=== PATIENT | female | born 1935 | race Caucasian/White ===

== ENCOUNTER 2018-08-03 11:39 | Inpatient (IN) | payer MEDICARE, OTHER ==
[~2018-08-03] VITALS: Ht 167.6 cm; Wt 62.7 kg
--- OUTSIDE RECORDS SUMMARY | ~2018-08-03 | XMS | Clinical Summary ---
Demographics + + + | Address | [address] | | | [place] [address] | + + + | Preferred Language | Unknown | + + + | Marital Status | | + + + | Quaker Affiliation | Unknown | + + + | Race | Unknown | + + + | Ethnic Group | Unknown | + + + Author + + + | Author | [facility] | + + + | Organization | [facility] | + + + | Address | Unknown | + + + | Phone | Unavailable | + + + Support + + + + + | Name | Relationship | Address | Phone | + + + + + | Tiffani Youngblood | ECON | [address] | | | | | [place] | | | | | [phone] | | + + + + + Care Team Providers + +------+ + | Care Clinical Immunologist Name | Role | Phone | + +------+ + | Asa Pedroza MD | PP | | + +------+ + Allergies + + + + + + | Active Allergy | Reactions | Severity | Noted | Comments | | | | | Date | | + + + + + + | Iodinated Diagnostic | Rash | Medium | 04/04/20 | Did well with | | Agents | | | 14 | cardiac cath | + + + + + + Current Medications + + +--------+---------+------+------+-------+ | Prescription | Sig. | Disp. | Refills | Star | End | Statu | | | | | | t | Date | s | | | | | | Date | | | + + +--------+---------+------+------+-------+ | ondansetron | Take 4 mg by mouth 3 | | | | | Activ | | (ZOFRAN) 4 MG tablet | (three) times daily | | | | | e | | | as needed. | | | | | | + + +--------+---------+------+------+-------+ | losartan (COZAAR) | Take 100 mg by mouth | | | | | Activ | | 100 MG tablet | daily. | | | | | e | + + +--------+---------+------+------+-------+ | ferrous gluconate | Take 1 tablet by | 30 | 6 | 11/2 | | Activ | | (FERGON) 324 MG | mouth daily with | tablet | | 1/20 | | e | | tablet | breakfast. | | | 14 | | | + + +--------+---------+------+------+-------+ | coenzyme Q10 400 | Take 400 mg by mouth | | | | | Activ | | MG capsule | 2 (two) times | | | | | e | | | daily. | | | | | | + + +--------+---------+------+------+-------+ | warfarin | Take 1 mg by mouth | | | | | Activ | | (COUMADIN) 1 MG | daily. Tues. & | | | | | e | | tablet | Thurs. 2mg., 1mg. | | | | | | | | Other days (reg by | | | | | | | | [facility] ) | | | | | | + + +--------+---------+------+------+-------+ | aspirin 81 MG EC | Take 162 mg by mouth | | | | | Activ | | tablet | daily with | | | | | e | | | breakfast. | | | | | | + + +--------+---------+------+------+-------+ | metoprolol | Take 50 mg by mouth | | | | | Activ | | (LOPRESSOR) 50 MG | 2 (two) times daily. | | | | | e | | tablet | | | | | | | + + +--------+---------+------+------+-------+ | nitrofurantoin | Take 100 mg by mouth | | | | | Activ | | (MACRODANTIN) 100 MG | nightly. | | | | | e | | capsule | | | | | | | + + +--------+---------+------+------+-------+ | cephALEXin | Take 500 mg by mouth | | | | | Activ | | (KEFLEX) 500 MG | 2 (two) times | | | | | e | | capsule | daily. Endocarditis | | | | | | | | prophylaxis, PRN | | | | | | + + +--------+---------+------+------+-------+ | pravastatin | Take 80 mg by mouth | | | | | Activ | | (PRAVACHOL) 80 MG | nightly. | | | | | e | | tablet | | | | | | | + + +--------+---------+------+------+-------+ | BIOTIN PO | Take by mouth. | | | | | Activ | | | | | | | | e | + + +--------+---------+------+------+-------+ Active Problems + + + | Problem | Noted Date | + + + | PAD (peripheral artery disease) | 12/27/2015 | + + + + + | Last Assessment & Plan: PAD/claudication. | + + + + + | Hypertension | 11/17/2015 | + + + + + | Last Assessment & Plan: Hypertension, controlled, continue | | current meds at current doses (losartan, metoprolol). 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 | | 80yo WF, known to have severe aortic stenosis, undergoing | | open heart surgery, AVR with single-vessel bypass surgery. She | | was seen after surgery, echocardiogram was performed which showed | | the valve to be stable ejection fraction normal, lost to | | follow-up. She states that she is only modestly active, | | housework, has problems with her feet. She denies any chest | | discomfort, shortness of breath, palpitations, or | | lightheadedness. She states that after her valve surgery she had | | some small mini strokes, but nothing serious, lately, no new | | visual disturbances, dysarthria, dysphasia, lateralizing signs or | | symptoms. An echocardiogram was performed, the aortic valve is | | stable, no significant gradient, no significant valvular | | insufficiency in the ejection fraction is well-preserved. Stress | | test was performed which showed poor functional capacity, | | however negative for ischemia, however only 50% of maximum heart | | rate was obtained. She states that she does have symptoms of | | cramping in the calves when she walks for any length of time. We | | offered an arterial ultrasound of extremities, at this point she | | is not sure she would like to proceed, but will consider it. | | Walking exercises encouraged. At our next visit, will discuss | | statin therapy.Hx CABG ([facility], [place]): 06/07/2010, CABG*1 ([facility] | | to LAD)/AVR (#21 SJM). Hx PCI/stent: noHx PAcemaker/ICD: noLast | | Cath, 05/25/2010([facility]): left main [place], 70-75% | | prox-LAD, 30% prox-LCx, 50% mid-RCA.Last Echo, 11/23/2015: AVR | | stable, peak/mean gradient 15/8mmHg, trace AI, trace MR, trace | | TR, mild concentric LVH LVEF >70%, est systolic PAP | | 26-31mmHg.Last Stress Test, 12/20/2015 ([facility]): 3:43min | | Rboert, ECG (-) for ischemia, but attained only 50% MPHR, no | | arrhythmias.ECG, 11/16/2015: NSR, 70bpm. | + + + + + | S/P AVR (aortic valve replacement) | 04/04/2014 | + + + + + | Last Assessment & Plan: Hx . AVR (#21 SJM), 06/07/2010. On | | warfarin. Endocarditis prophylaxis reenforced. Results of | | recent echocardiogram reviewed with patient.Last Echo, 11/23/2015: | | AVR stable, peak/mean gradient 15/8mmHg, trace AI, trace MR, | | trace TR, mild concentric LVH LVEF >70%, est systolic PAP | | 26-31mmHg. | + + + + + | GI bleeding | 04/04/2014 | + + + | Coumadin toxicity | 04/04/2014 | + + + | S/P CABG x 1 | 06/07/2010 | + + + + + | Overview: OLIVER > LAD | + + + + + | Hx of aortic valve replacement, mechanical | 06/07/2010 | + + + + + | Overview: #[address] [facility] | + + + +---+ | Coronary artery disease | | + +---+ + + | Overview: single vessel (LAD) | + + + +---+ | PVD (peripheral vascular disease) | | + +---+ | Stroke | | + +---+ + + | Overview: clinically has had several TIAs (expressive | | aphasia, lasting short times), 1 occasion with LLE weakness for 5 | | minutes | + + Family History + + +------+ + | Medical History | Relation | Name | Comments | + + +------+ + | Arrhythmia | Brother | | | + + +------+ + | Coronary art dis | Brother | | CABG | + + +------+ + | High cholesterol | Daughter | | | + + +------+ + | Hypertension | Daughter | | | + + +------+ + | Alcohol abuse | Father | | | + + +------+ + | Hypertension | Mother | | | + + +------+ + | Thyroid disease | Mother | | of "thyroid crisis" | + + +------+ + | High cholesterol | Son | | | + + +------+ + | Hypertension | Son | | | + + +------+ + | Prostate cancer | Son | | | + + +------+ + + +------+ + + | Relation | Name | Status | Comments | + +------+ + + | Brother | | | | | | | (Age | | | | | 74) | | + +------+ + + | Daughter | | Alive | | + +------+ + + | Father | | | passed in a fire | | | | (Age | | | | | 70) | | + +------+ + + | Mother | | | | | | | (Age | | | | | 64) | | + +------+ + + | Sister | | | "heart gave out" | | | | (Age | | | | | 72) | | + +------+ + + | Son | | Alive | | + +------+ + + Social History + +-------+ +--------+ + | Tobacco Use | Types | Packs/Day | Years | Date | | | | | Used | | + +-------+ +--------+ + | Former Smoker | | 0.4 | 3 | Quit: 05/19/1960 | + +-------+ +--------+ + + +---+---+---+ | Smokeless Tobacco: | | | | | Never Used | | | | + +---+---+---+ + + +---------+ + | Alcohol Use | Drinks/We | oz/Week | Comments | | | ek | | | + + +---------+ + | Yes | 1 | 0.6 | occasionally | | | Standard | | | | | drinks or | | | | | | | | | | equivalen | | | | | t | | | + + +---------+ + + + + | Sex Assigned at | Date Recorded | | | | + + + | Not on file | | + + + Last Filed Vital Signs + + + + | Vital Sign | Reading | Time Taken | + + + + | Blood Pressure | 150/78 | 11/11/2016 1:20 PM PDT | + + + + | Pulse | 75 | 11/11/2016 1:20 PM PDT | + + + + | Temperature | 36.7 C (98.1 F) | 04/08/2014 12:19 PM PST | + + + + | Respiratory Rate | 18 | 12/27/2015 9:41 AM PDT | + + + + | Oxygen Saturation | 95% | 11/11/2016 1:20 PM PDT | + + + + | Inhaled Oxygen | - | - | | Concentration | | | + + + + | Weight | 68 kg (150 lb) | 11/11/2016 1:20 PM PDT | + + + + | Height | 166.4 cm (5' 5.5") | 11/11/2016 1:20 PM PDT | + + + + | Body Mass Index | 24.58 | 11/11/2016 1:20 PM PDT | + + + + Plan of Treatment + + + + + | Health Maintenance | Due Date | Last Done | Comments | + + + + + | Vaccine: | | | | | Dtap/Tdap/Td (1 - | 7 | | | | Tdap) | | | | + + + + + | Vaccine: Zoster (1 | | | | | of 2) | 8 | | | + + + + + | DEXA SCAN SCREENING | | | | | | 3 | | | + + + + + | Vaccine: | | | | | Pneumococcal 65+ | 3 | | | | Low/Medium Risk (1 | | | | | of 2 - PCV13) | | | | + + + + + | Vaccine: Influenza | | | | | (#1) | 8 | | | + + + + + Results Not on filefrom Last 3 Months Insurance + +--------+ +------+-------+ + | Payer | Benefi | Subscriber | Type | Phone | Address | | | t Plan | ID | | | | | | / | | | | | | | Group | | | | | + +--------+ +------+-------+ + | MEDICARE | MEDICA | [id number] | | | [address] | | | RE | | | | [place] [address] | | | IP-OP | | | | | + +--------+ +------+-------+ + | COMMERCIAL OTHER | COMMER | [id number] | | | | | | CIAL | | | | | | | GENERI | | | | | | | C PLAN | | | | | + +--------+ +------+-------+ + + +--------+ +--------+ + + | Guarantor Name | Accoun | Relation to | Date | Phone | Billing Address | | | t Type | Patient | of | | | | | | | | | | + +--------+ +--------+ + + | NAYANA YOUNGBLOOD | Person | Self [birth year] Home: | [address] | | | [place] | | 1936 | [phone] | [place] | | | [place] | | | 5 | [phone] | + +--------+ +--------+ + +
--- OUTSIDE RECORDS SUMMARY | ~2018-08-03 | XMS | Clinical Summary ---
Demographics + + + | Address | [address] | | | [place] [address] | + + + | Preferred Language | Unknown | + + + | Marital Status | | + + + | Druze Affiliation | Unknown | + + + | Race | Unknown | + + + | Ethnic Group | Unknown | + + + Author + + + | Author | [facility] | + + + | Organization | [facility] | + + + | Address | Unknown | + + + | Phone | Unavailable | + + + Support + + + + + | Name | Relationship | Address | Phone | + + + + + | Tiffani Youngblood | ECON | [address] | | | | | [place] | | | | | [phone] | | + + + + + Care Team Providers + +------+ + | Care Special Events Coordinator Name | Role | Phone | + [...] artery disease involving coronary bypass graft of [place] | 04/04/2014 | | heart with angina [...] will discuss | | statin therapy.Hx CABG ([facility], [place]): 06/07/2010, CABG*1 ([facility] | | to LAD)/AVR (#21 SJM). Hx PCI/stent: noHx PAcemaker/ICD: noLast | | Cath, 05/25/2010([facility]): left main [place], 70-75% | | prox-LAD, 30% prox-LCx, 50% mid-RCA.Last Echo, 11/23/2015: AVR | | stable, peak/mean gradient 15/8mmHg, trace AI, trace MR, trace | | TR, mild concentric LVH LVEF >70%, est systolic PAP | | 26-31mmHg.Last Stress Test, 12/20/2015 ([facility]): 3:43min | | Robert, ECG (-) for ischemia, but attained only [...] + + | Overview: [address] [facility] | + + + +---+ | Coronary [...] +------+-------+ + | MEDICARE | MEDICA | [id number] | | | [address] | | | RE | | | | [place] [address] | | | IP-OP | | | | | + +--------+ +------+-------+ + | COMMERCIAL OTHER | COMMER | [id number] | | | | | | CIAL [...] | Self | [birth year] | Home: | [address] | | | [place] | | 1936 | [phone] | [place] | | | [place] | | | 7 | [phone] | + +--------+ +--------+ + +
--- OUTSIDE RECORDS SUMMARY | ~2018-08-03 | XMS | Clinical Summary ---
Demographics + + + | Address | [address] | | | [place] [address] | + + + | Home Phone | | + + + | Preferred Language | Unknown | + + + | Marital Status | | + + + | Druze Affiliation | Unknown | + + + | Race | Unknown | + + + | Ethnic Group | Unknown | + + + Author + + + | Author | [facility] | | | and [place] | + + + | Organization | [facility] | | | and [place] | + + + | Address | Unknown | + + + | Phone | Unavailable | + + + Support + + + + + | Name | Relationship | Address | Phone | + + + + + | Tiffani Gutierrez | ECON | [address] | Unavailable | | | | [place] | | | | | [phone] | | + + + + + Care Team Providers + +------+ + | Care Law Instructor Name | Role | Phone | + +------+ + PP | Unavailable | + +------+ + Allergies + + + +--------+ + | Active Allergy | Reactions | Severity | Noted | Comments | | | | | Date | | + + + +--------+ + | Iodine | | | | | + + + +--------+ + | Sulfa Antibiotics | | | | | + + + +--------+ + Current Medications + + +-------+---------+------+------+-------+ | Prescription | Sig. | Disp. | Refills | Star | End | Statu | | | | | | t | Date | s | | | | | | Date | | | + + +-------+---------+------+------+-------+ | cholecalciferol | Take 2,000 Units by | | | 01/17 | | Activ | | (VITAMIN D-3) 2000 | mouth Daily. | | | 09/05 | | e | | UNITS TABS | | | | 12 | | | + + +-------+---------+------+------+-------+ | losartan (COZAAR) | Take 100 mg by mouth | | | 091 | | Activ | | 100 MG tablet | Daily. | | | 420 | | e | | | | | | 12 | | | + + +-------+---------+------+------+-------+ | warfarin | Take 2 mg by mouth 6 | | | 01/17 | | Activ | | (COUMADIN) 2 mg | days a week and 1 | | | 09/05 | | e | | tablet | mg tablet 1 day a | | | 12 | | | | | week | | | | | | + + +-------+---------+------+------+-------+ | atorvaSTATin | Take 40 mg by mouth | | | 01/17 | | Activ | | (LIPITOR) 40 mg | Daily. | | | 09/05 | | e | | tablet | | | | 12 | | | + + +-------+---------+------+------+-------+ | aspirin 81 mg EC | Take 81 mg by mouth | | | 01/17 | | Activ | | tablet | Daily. | | | 20 | | e | | | | | | 12 | | | + + +-------+---------+------+------+-------+ | metoprolol | Take 1/2 tablet by | | | 01/17 | | Activ | | succinate (TOPROL | mouth 2 times daily | | | 09/05 | | e | | XL) 50 mg 24 hr | | | | 12 | | | | tablet | | | | | | | + + +-------+---------+------+------+-------+ | Omeprazole | TBEC; Take 1 tablet | | | 01/17 | | Activ | | Magnesium (PRILOSEC | by mouth once daily | | | 09/05 | | e | | OTC PO) | | | | 12 | | | + + +-------+---------+------+------+-------+ Active Problems + + + | Problem | Noted Date | + + + | HYPERLIPIDEMIA | | + + + | OTHER NONSPECIFIC ABNORMAL SERUM ENZYME LEVELS | | + + + + + | Overview: Problem list case management associate utility | + + + +---+ | HYPERTENSION | | + +---+ | GERD | | + +---+ | TRANSIENT ISCHEMIC ATTACKS, HX OF | | + +---+ + + | Overview: ICD-10 Record update | + + + +---+ | CAROTID ARTERY STENOSIS | | + +---+ Social History + +-------+ +--------+------+ | Tobacco Use | Types | Packs/Day | Years | Date | | | | | Used | | + +-------+ +--------+------+ | Never Assessed | | | | | + +-------+ +--------+------+ + + + | Sex Assigned at | Date Recorded | | | | + + + | Not on file | | + + + Last Filed Vital Signs + + + + | Vital Sign | Reading | Time Taken | + + + + | Blood Pressure | 142/78 | 10/03/2011 0000 PDT | + + + + | Pulse | - | - | + + + + | Temperature | - | - | + + + + | Respiratory Rate | - | - | + + + + | Oxygen Saturation | - | - | + + + + | Inhaled Oxygen | - | - | | Concentration | | | + + + + | Weight | 70.3 kg (155 lb) | 10/03/2011 0000 PDT | + + + + | Height | 165.1 cm (5' 5") | 08/16/2011 0000 PDT | + + + + | Body Mass Index | 25.79 | 10/03/2011 0000 PDT | + + + + Plan [...]
--- OUTSIDE RECORDS SUMMARY | ~2018-08-03 | XMS | Clinical Summary ---
Demographics + + + | Address | [address] | | | [place] [address] | + + + | Home Phone | | + + + | Preferred Language | Unknown | + + + | Marital Status | | + + + | Hinduism Affiliation | Unknown | + + + | Race | Unknown | + + + | Ethnic Group | Unknown | + + + Author + + + | Author | [facility] | | | and [place] | + + + | Organization | [facility] | | | and [place] | + + + | Address | Unknown | + + + | Phone | Unavailable | + + + Support + + + + + | Name | Relationship | Address | Phone | + + + + + | Tiffani Gutierrez | ECON | [address] | Unavailable | | | | [place] | | | | | [phone] | | + + + + + Care Team Providers + +------+ + | Care Ssds Mk 2 Advanced Operator Name | Role | Phone | + [...] + + + | Overview: Problem list bill of materials clerk utility | + + + +---+ | [...]
--- OUTSIDE RECORDS SUMMARY | ~2018-08-03 | XMS | Clinical Summary ---
Demographics + + + | Address | [address] | | | [place] [address] | + + + | Preferred Language | Unknown | + + + | Marital Status | | + + + | Nondenominational Affiliation | Unknown | + + + | Race | Unknown | + + + | Ethnic Group | Unknown | + + + Author + + + | Author | [facility] | + + + | Organization | [facility] | + + + | Address | Unknown | + + + | Phone | Unavailable | + + + Support + + + + + | Name | Relationship | Address | Phone | + + + + + | Tiffani Youngblood | ECON | [address] | | | | | [place] | | | | | [phone] | | + + + + + Care Team Providers + +------+ + | Care Railroad Car Letterer Name | Role | Phone | + [...] artery disease involving coronary bypass graft of [place] | 04/04/2014 | | heart with angina [...] will discuss | | statin therapy.Hx CABG ([facility] [place]): 06/07/2010, CABG*1 ([facility] | | to LAD)/AVR (#21 SJM). Hx PCI/stent: noHx PAcemaker/ICD: noLast | | Cath, 05/25/2010([facility]): left main [place], 70-75% | | prox-LAD, [...] +------+-------+ + | MEDICARE | MEDICA | [id number] | | | [address] | | | RE | | | | [place] [address] | | | IP-OP | | | | | + +--------+ +------+-------+ + | COMMERCIAL OTHER | COMMER | [id number] | | | | | | CIAL [...] | Self | [birth year] | Home: | [address] | | | [place] | | 1936 | [phone] | [place] | | | [place] | | | | [phone] | + +--------+ +--------+ + +
--- OUTSIDE RECORDS SUMMARY | ~2018-08-03 | XMS | Clinical Summary ---
Demographics + + + | Address | [address] | | | [place] [address] | + + + | Home Phone | | + + + | Preferred Language | Unknown | + + + | Marital Status | | + + + | Baptism Affiliation | Unknown | + + + | Race | Unknown | + + + | Ethnic Group | Unknown | + + + Author + + + | Author | [facility] | | | and [place] | + + + | Organization | [facility] | | | and [place] | + + + | Address | Unknown | + + + | Phone | Unavailable | + + + Support + + + + + | Name | Relationship | Address | Phone | + + + + + | Tiffani Gutierrez | ECON | [address] | Unavailable | | | | [place] | | | | | [phone] | | + + + + + Care Team Providers + +------+ + | Care Master Cook Name | Role | Phone | + [...] + + + | Overview: Problem list desktop architect utility | + + + +---+ | [...]
[~2018-08-03 11:39] MED LIST: BAYER CHEWABLE81 MG PO; CEPHALEXIN500 MG PO; CIPRODEX OTIC7.5 ML AS; CO Q-10100 MG PO; COUMADIN1 MG PO; COUMADIN4 MG PO; KEFLEX500 MG PO; LOSARTAN POTAS100 MG PO; METOPROLOL TART25 MG PO; METOPROLOL TART50 MG PO; NIACIN500 M1 PO; NITROFURANTOIN100 MG PO; NORCO 5-325 TA1 EACH PO; ONDANSETRON ODT4 MG SL; PRILOSEC OTC20 MG PO; PRILOSEC20 MG PO; VITAMIN D31000 UNIT PO; VITAMIN E400 UNI1 PO; WARFARIN SODIUM2 MG PO
--- NOTE | 2018-08-03 17:06 | EKG ---
[facility] [address] [place], [place] [address] Signed Normal sinus rhythm Normal ECG When compared with ECG of 24-OCT-2016 19:51, NM interval has decreased Confirmed by TOMEKA RUIZ DO ([id number]) on 08/03/2018 5:06:11 PM Electronically Signed By: TOMEKA RUIZ DO 08/03/18 1706 PATIENT NAME: YOUNGBLOODNAYANA Electrocardiogram DATE OF : 39 PHYSICIAN: TOMEKA RUIZ DO REPORT #: [id number] REPORT IS CONFIDENTIAL AND NOT TO BE RELEASED WITHOUT AUTHORIZATION
--- NOTE | 2018-08-03 19:00 | NUR ---
PATIENT ARRIVED TO THE UNIT FROM ED. ASSISTED IN TRANSFER FROM STRECHER TO BED. PATIENT HAS ABLE TO HELP SOME, DID NOT FOLLOW COMMANDS WELL. VS DONE. CHARGE IN ROOM TO ASSIST WITH ADDMISSION.
--- NOTE | 2018-08-03 19:30 | NUR ---
Medications reconciled with patient interview. Patient has not taking her warfarin today yet, pharmacy has dosed 3mg for tondayana
--- NOTE | 2018-08-03 20:30 | NUR ---
IV FLUIDS STARTED, IV ABX PER ORDER. SITE FLUSHED WELL. PATIENT APPEARS TO BE SLEEPING SOUNDLY. RR 20. ALLOWED REST AT THIS TIME. BED ALARM ON. CALL LIGHT IN HAND.
--- NOTE | 2018-08-03 21:50 | NUR ---
PATIENT SLEEPING SOUDNLY. WOKE EASILY TO VOICE AND TOUCH BUT WAS FALLING ASLEEP AGAIN QUICKLY. PATIENT REPLIES TO YES/NO QUESTIONS BUT IS UNABLE TO PROVIDE HER NAME. STATES SHE IS IN [place]. WHEN REORIENTED PATIENT STATES "OKAY" BUT IS UNABLE TO REPEAT INFORMATION. PATIENT APPEARS TO HAVE SOME DEGREE OF EXPRESSIVE APHASIA. PATIENT PASSED BEDSIDE SWALLOW EVAL WITHOUT CONCERN AND WAS ABLE TO SWALLOW MEDICATIONS. PATIENT DENIES NEED TO VOID AT THIS TIME. LUNGS ARE CLEAR. ABD IS SOFT. PATIENT UNABLE TO ANSWER WHEN SHE HAD HER LAST BM. CMS APPEARS TO BE INTACT, THOUGH PATIENT DOES NOT ANSWER SENSATION QUESTIONS. VS DONE, PATIENT HAS ELEVATED BP. WILL CONTINUE TO MONITOR. TELE IN PLACE, SINUS RHYTHM. HR 77. BED ALARM ON. CALL LIGHT IN PATIENT'S HAND.
--- NOTE | 2018-08-03 22:30 | NUR ---
BED ALARM ALERTED STAFF TO PATIENT EXITING BED. PATIENT UP TO BSC, 2PA. PATIENT REQUIRES FREQUENT DIRECTIONS BUT APPEARS STEADY ON HER FEET. PATIENT UNABLE TO PROVIDED HER NAME OR ANY ORIENTATION QUESTIONS. CMS APPEARS INTACT. PUPILS EQUAL AND REACTIVE TO LIGHT. COGNOS CONSULTANT STRENGTH EQUAL. NO PHYSICAL DEFICITS NOTED. PATIENT RETURNED TO BED AND QUICKLY APPEARED ASLEEP. BED ALARM ON. CALL LIGHT IN REACH.
--- NOTE | 2018-08-04 06:46 | NUR ---
PATIENT UP TO VOID WITH SLD INCLUSION TEACHER, UNABLE TO VOID. BLADDER SCAN FOR 120. MD AWARE. NO NEW ORDERS.
--- NOTE | 2018-08-04 06:47 | NUR ---
PATIENT HAS SLEPT MOST OF THE SHIFT. NEURO CHECK UNACHANGED. PATIENT HAS NO PHYSICAL DEFICITS, BUT IS CONFUSED AND UNABLE TO RESPOND APPROPRIATELY TO ANY QUESTIONS. PATIENT FOLLOWS SOME COMMANDS. DOES NOT USE CALL LIGHT APPROPRIATELY. BED ALARM IN USE. IV FLUIDS PER ORDER. PASSED BEDSIDE SWALLOW EVAL. 1PA UP TO BSC. NEURO CHECKS.
--- NOTE | 2018-08-04 07:50 | NUR ---
RPEORT RECIEVED FROM PREMISES TECHNICIAN RN. PT SITTING UP IN BED. ABLA TO ANSWER YES/NO QUESTIONS. 2PA TO CAHIR FOR BREAKFAST, PT UNSTEADY ON FEET WITH POOR BALANCE. SHUFFLE WALK TO CHAIR. CHAIR ALARM IN PLACE. CALL LIGHT IN REACH. VISIBLE FROM NURSING STASTION. LR AT 75ML/HR.
--- NOTE | 2018-08-04 10:46 | NUR ---
FAMILY AT BEDSIDE.
--- NOTE | 2018-08-04 11:10 | NUR ---
PT OUT AMBULATING IN HALLS WITH PHYSICAL THERAPY. TOLERATING WELL USING FWW.
--- NOTE | 2018-08-04 19:49 | NUR ---
RECEIVED REPORT FROM DAY SHIFT RN. PATIENT REPOSITIONED IN BED. BED ALARM ON FOR SAFETY. CALL LIGHT IN REACH.
--- NOTE | 2018-08-04 22:01 | NUR ---
PATIENT ASSESMENT COMPLETED. PATIENTS VITALS TAKEN AND RECORDED. PATIENT DENIES ANY PAIN. RIGHT SIDE WEAKNESS NOTED. PATIENT CONTINUES TO HAVE EX APHASIA. PATIENT ASSISTED TO THE RESTROOM A 1PA W/FWW. PATIENT IS UNSTEADY ON HER FEET AND STRUGGLES WITH BALANCE. PATIENT WAS ABLE TO VOID. PATIENT IS NOW BACK IN BED RESTING. PATIENT DENIES ANY FURTHER NEEDS. BED ALARM ON FOR SAFETY. IV INFUSING PER ORDER.
--- NOTE | 2018-08-04 23:04 | NUR ---
PATIENT IS RESTING IN BED WITH EYES CLOSED, RR 17. TELE #9, HR 59. BED ALARM ON FOR SAFETY. CALL LIGHT IN REACH.
--- NOTE | 2018-08-05 01:54 | NUR ---
PATIENT ASSISTED TO THE RESTROOM A 1PA W/FWW. PATIENT TOLERATED ACTIVITY WELL. PATIENT DOES STRUGGLE WITH BALANCE. PATIENT WAS ABLE TO VOID. PATIENT IS NOW BACK IN BED RESTING. NEW IV STARTED. IV INFUSING PER ORDER. NO NEEDS NOTED. CALL LIGHT IN REACH. BED ALARM ON FOR SAFETY.
--- NOTE | 2018-08-05 02:37 | NUR ---
HELPED PATIENT TO THE BATHROOM AND BACK TO BED USING WALKER. BED ALARM ON.
--- NOTE | 2018-08-05 03:24 | NUR ---
PATIENT IS RESTING IN BED WITH EES CLOSED, RR 17. BED ALARM ON FOR SAFETY. CALL LIGHT IN REACH.
--- NOTE | 2018-08-05 05:03 | NUR ---
PATIENT RESTED WELL THROUGHOUT THE SHIFT. PATIENT IS ON A REGULAR DIET, TOLERATING WELL, W/NO COMPLAINTS OF NAUSEA. PATIENT HAS ORDER FOR ST/OT/PT. PATIENT IS A 1-2 PA W/FWW. PATIENT HAS RIGHT SIDED WEAKNESS, RIGHT SLIGHT FACIAL DROOP NOTED. PATIENT HAS NEURO CHECKS. PATIENT IS ON TELE #9, HR IN THE 60-70. PATIENT HAS IV INFUSING PER ORDER. PATIENT HAS EXPRESSIVE APHASIA. PATIENT APPEARS TO HAVE RIGHT VISUAL DEFICIT. PATIENT IS IMPULSIVE. BED ALARM ON FOR SAFETY.
--- NOTE | 2018-08-05 05:08 | NUR ---
PATIENT UP TO THE RESTROOM A 1PA W/FWW. BRIM POUNCER MACHINE OPERATOR IN THE ROOM. PATIENTS DW TAKEN AND RECORDED. PATIENT IS NOW BACK IN BED RESTING. PATIENTS VITALS TAKEN AND RECORDED. PATIENTS INTAKE AND OUPUT RECORDED. PATIENT DENIES ANY NEEDS. CALL LIGHT IN REACH. BED ALARM ON FOR SAFETY.
--- NOTE | 2018-08-05 07:38 | NUR ---
PT. WALKED TO THE BATHROOM AND VOIDED AND HAD A SMALL BM. WALKED TO THE CHAIR AND SHE WAS UNSTEADY BEFORE SHE SET DOWN,HAD TO GRAB HER SO SHE WOULDNT FALL. SHE IS SITTING UP WAITING FOR BREAKFAST. CALL LIGHT IN REACH.
--- NOTE | 2018-08-05 07:45 | NUR ---
PATIENT UP TO BATHROOM TO VOID WITH STANDBY ASSIST, UP TO CHAIR FOR BREAKFAST. NEURO CHECK: RIGHT ARM DRIFT, RIGHT FACIAL DROOP NOTED, EXPRESSIVE APHASIA WITH UNKNOWN BASELINE. PATIENT IS ABLE TO USE RIGHT HAND TO EAT BREAKFAST, NO SWALLOWING DIFFICULTY NOTED. PATIENT DENIES PAIN.
--- NOTE | 2018-08-05 10:51 | NUR ---
PATIENT UP TO BATHROOM, VERY UNSTEADY ON FEET. BACK IN BED, BED ALARM IS ON.
--- NOTE | 2018-08-05 12:39 | NUR ---
PATIENT BLOOD PRESSURE IS 195/[address] RUIZ KNOW. PATIENT GIVEN PRN LABETALOL.
--- NOTE | 2018-08-05 12:57 | NUR ---
PATIENT RESTING IN BED, CALL LIGHT IN REACH. NO OTHER NEEDS AT THIS TIME.
--- NOTE | 2018-08-05 13:01 | NUR ---
PATIENT AGITATED, TRYING TO UNTAPE IV. IV SITE WRAPPED WITH COBAN.
--- NOTE | 2018-08-05 13:25 | NUR ---
PATIENT GIVEN 2MG OF IV HALDOL FOR AGITATION, TRYING TO PULL IV OUT. TROY VINCENT IN WITH PATIENT 1:1 FOR NOW. PATIENT TOLD PRIMARY NURSE, "I WANT YOU TO LEAVE."
--- NOTE | 2018-08-05 14:16 | NUR ---
IN ROOM, ASKING THAT IV BE UNWRAPPED. NURSE EXPLAINED THAT THE IV WAS NEEDED FOR TREATMENT NOW, SAFTEY REASONS, AND IN THE EVENT OF A CODE. APOLOGIZED THAT I WAS UNABLE TO REMOVE IV OR REASSIGN TO A DIFFERENT NURSE, BUT THAT I WOULD NOT COME IN ROOM UNLESS NECESSARY.
--- NOTE | 2018-08-05 16:05 | NUR ---
PATIENT UP TO BATHROOM WITH FLOAT NURSE TO VOID AND BACK TO BED. BED ALARM IS ON.
--- NOTE | 2018-08-05 17:29 | NUR ---
PATIENT RESTING IN BED, FAMILY IN ROOM. PATIENT IS RESPONSIVE TO VOICE AND COOPERATIVE. RN IN ROOM AT THIS TIME. NO OTHER NEEDS.
--- NOTE | 2018-08-05 17:32 | NUR ---
PATIENT UP TO COMMODE TO VOID IN BATHROOM WITH 2 ASSIST. PATIENT IS NOT STEADY ON HER FEET, DOES NOT FOLLOW DIRECTIONS WELL. IV HAS BEEN LEFT SALINE LOCKED DUE TO PATIENT AGITATION, TELEMETRY IS ON. BLOOD PRESSURE HAS REMAINED HIGH ALL DAY, DESPITE MULTIPLE MEDICATIONS. SON IS CURRENTLY IN ROOM WITH PATIENT.
--- NOTE | 2018-08-05 20:25 | NUR ---
VERBAL APHASIA PRESENT. OPENS EYES WITH SOUND, FOLLOWING INSTRUCTIONS. COOP WITH VITALS, AND ASSESSMENT. TELE#( IN PLACE. BED ALARM ON, IV SITE LFA INTACT, PATENT, IVF INFUSING
--- NOTE | 2018-08-05 20:50 | NUR ---
I HEARD BRANDON, THE TELEVISION RECEIVER ANALYZER CALL FOR HELP IN ROOM 120. WHEN I ENTERED THE ROOM THE PATIENT WAS SITTING ON THE RIGHT HAND SIDE OF THE BED ALMOST CROSS LEGGED ON THE FLOOR. I ASKED THE PATIENT IF SHE FELL DOWN OR JUST SAT DOWN. SHE SAID,"WELL I JUST KIND OF SAT DOWN." I ASK IF SHE WAS HURT AND SHE SAID,"NO." THEN SHE GRABBED THE BED RAIL ON THE BED STOOD UP AND SAT BACK ON THE BED AND THEN LAID DOWN. THIS IS WHAT I REPORTED TO THE CHARGE NURSE.
--- NOTE | 2018-08-05 20:56 | NUR ---
BED ALARM GOING OFF, PT FOUND SITTING ON FLOOR BY BED. RAILS UPX3, BED ALARM ON. IVSITE PATENT. PT STOOD OFF FLOOR BY SELF AND GOT BACK TO BED BY SELF. PT TOLD MALE RN WHO WENT INTO ROOM THAT SHE HAD GOT OUT OF BED AND SAT ON THE FLOOR. CURRENTLY AWAKE, ANSERS YES TO ALL QUESTIONS ASKED. PT HAS EXPRESSIVE APHASIA. NO BRUISING NOTED ON FOREHEAD, FACE, ELBOWS OR KNEES. DR GAMBOA NOTIFIED OF PTS UNWITNESSED GETTING OUT OF BED. BED ALRM WAS ON ON HIGH SENSITIVE. RAILS UPX3. NEW ORDERS TO PLACE PADS AROUND BED. HIGH FALL RISK PROTOCOL IN PLACE. PT ACROSS FROM [facility] [place] [facility].
--- NOTE | 2018-08-05 21:13 | NUR ---
FLOOR MAT AND PADS AROUND RAILS PPLIED. BED ALARM ON ON HIGHEST SENSITIVE LEVEL. UNABLE TO ASSESS PTS DEGREE OF TEACHING UNDERSTANDING DUE TO EXPRESSIVE APHASIA. PT ACRSOSS FROM [facility], ROOM DOOR OPEN . PT CALM, EYES CLOSED.
--- NOTE | 2018-08-05 23:50 | NUR ---
BED ALARM GOING OFF, PT TRYOING TO CRAWL OUT. SAT EDGE OF BED FOR SEVERAL MINUTES, AND AFTER MANY CUES, GOT BACK TO BED. HIGH FALL PRECAUTIONS IN PLACE. FLOOR MAT IN PLACE. BED ALARM BACK ON ON HIGHEST SETTING. CONTINUES TO HAVE EXPRESSIVE APHASIA,
--- NOTE | 2018-08-06 01:05 | NUR ---
MESSAGE LEFT IN PHONE FOR DR GAMBOA R/T PT INCREASED AGITATION AND PULLING AT IV AND GETTING OPUT OF BED, PT CALMER AT THIS TIME, UNABLE TO FOLLOW INSTRUCTIONS, VERBAL APHASIA STILL PRESENT, IMPROVED R SIDED DEFICIT.
--- NOTE | 2018-08-06 01:09 | NUR ---
DR GAMBOA CALLED BACK. DR INFORMED OF PT INCREASED RESTLESSNESS, PULLING AT IV AND TAKING TELE OFF, AND GETTING OUT OF BED. NEW ORDERS OBTAINED OK TO SL PT, DC TELE, GIVE TRAZADONE 25MG PO, IF ABOVE NOT EFFECTIVE, KEEP PT ON A 1:1 FOR SAFETY REASONG
--- NOTE | 2018-08-06 01:22 | NUR ---
pt declining to take trazadone, sitting on edge of bed, declines to get back to bed, bed alrm was going off as she tries to get out of bed. Energy Consultant notified of pts 1:1 for safety. Pt not following instructions, unable to process safvety information being given to hger
--- NOTE | 2018-08-06 01:31 | NUR ---
continues to decline to take trazadone, meds were crushed and given on puding, spitted out. pt back to bed. bed alarm on highest setting. pt on 1:1 fall safety
--- NOTE | 2018-08-06 02:23 | NUR ---
pt trying to get out of bed, semi receptive to cues. Bed alarm on on highest setting. Continues on 1:1, Declined to have this RN do a second assessment. Calmer at this time
--- NOTE | 2018-08-06 02:42 | NUR ---
PATIENT IS RESTING, EYES CLOSED AND SNORING. BED ALARM ON.
--- NOTE | 2018-08-06 02:53 | NUR ---
BED ALARM WENT OFF. TOOK PATIENT TO THE BATHROOM. PATIENT IS BACK IN BED. BED ALARM ON.
--- NOTE | 2018-08-06 04:45 | NUR ---
PT CURRENTLY AWAKE, CALM, RAILS UPX3, BED ALARM ON HIGHEST LEVEL. HIGH FALL PROCAUTIONS IN PLACE. PT CONTINUES TO BE IMPULSIVE AND TRYING TO GET OUT OF BED. ON 1:1 WHEN AWAKE DUE TO IMPULSIVITY AND FOR FALL PRECAUTION. PT GOT SELF OUT OF BED AND SAT ON FLOOR X1, NO INJURIES NOTED. CONTINUES TO HAVE EXPRESSIVE/VERBAL APHASIA. R SIDED WEAKNESS, HAS GOT UP WITH 1PA AND FWW TO BR, VOIDED, BACK TO BED AFTER SEVERAL CUES. CALL LIGHT AT HANDS REACH, BED ALARM ON
--- NOTE | 2018-08-06 06:39 | NUR ---
PT UP TO BR, VOIDED QS, YELLOW URINE AND HAD SMEAR OF SOFT BM. BACKA TO BED USING 1PA AND FWW, R SIDED DEFICIT AND EXPRESSIVE APHASIA STILL PRESENT. DECLINED TO HAVE BP RETAKEN, DECLINED SIPS OF WATER AT THIS TIME. MOUTH CARE DONE. PT BACK TO BED, HIGH FALL PRECAUTIONS IN PLACE. BED ALARM ON AT HIGHEST SETTING PT IS VERY IMPULSIVE AND IS UNABLE TO COMPREHEND SAFETY/FALL PRECAUTIONS. NURSE IN ROOM
--- NOTE | 2018-08-06 07:00 | NUR ---
REPORT RECEIVED FROM TROY ORTIZ. PT RESTING IN BED WITH EYES CLOSED, RR = 20 BPM. BED RAILS UP, PADS IN PLACE, BED ALARM ON. PIV SALINE LOCKED.
--- NOTE | 2018-08-06 08:09 | NUR ---
MORNING ASSESSMENT AND MEDICATION DUE. PT AWAKE AND VISITING WITH SON. OCCATIONAL WORD SALAD HEARD, EXPRESSIVE EPHASIA NOTED. NIH STROKE SCALE ASSESSEMENT DONE - PT SCORES 8. VITALS TAKEN. PT COMPLIANT WITH CARES THIS MORNING AND TAKES MEDICATION WITHOUT AGITATION. PT EATS SOLID FOOD BREAKFAST WITH ASSISTANCE FROM SON BREONNA THIS RN, NO SWALLOWING DIFFICULTIES NOTED. PIV ASSESSED, WNL AT THIS TIME. RECOVERED WITH SOFT GAUZE AND SLIEVE. PT REFUSES TO GET UP TO CHAIR AT THIS TIME, RESTING IN BED WITH SON AT BEDSIDE. NO ADDITIONAL REQUESTS OR COMPLAINTS AT THIS TIME. BED ALARM ON. PADS IN PLACE.
--- NOTE | 2018-08-06 09:05 | NUR ---
TALKED WITH PT AND HER ABOUT THE NEED TO GO TO REHAB-WHERE SHE WILL GET THE BEST OF RECOVERY RATHER THAN JUST RETURNING HOME. MR FORD STATES THAT HE WILL GO DOWN AND CHECK OUT [facility] AND HE WILL THEN LET ME KNOW.
--- NOTE | 2018-08-06 09:37 | NUR ---
THIS RN TO ROOM TO CHECK ON PT. VITALS TAKEN. FAMILY AT BEDSIDE. PT DENIES PAIN AND NAUSEA. PT REQUESTS "i WOULD LIKE TO TAKE A BATH." MATTRESS FILLING MACHINE TENDER INFOMRED AND PREPARATIONS MADE. FAMILY REQUESTS SHOWER HAPPEN AFTER PT RESTS "A LITTLE MORE." BED RAILS UP. CALL LIGHT WITHIN REACH. BED ALAMR ON.
--- NOTE | 2018-08-06 10:20 | NUR ---
TALKED WITH THE PT DAUGHTER ELIO DEALER #[phone] ABOUT HER MOTHER AND WHAT THE PLANS WERE FOR HER RECOVERY PERIOD AND HER PROGNOSIS. I TOLD HER THAT WE WERE WORKING ON PLACEMENT INTO A FACILITY AND THAT MURRAY WOULD LIKE HER TO GO TO [facility] AFTER HE CHECKS IT OUT, HE STATES THAT WAY WE CAN VISIT HER FREQUENTLY. I ALSO TOLD HER FAR HER PROGNOSIS GOES THAT WE HAVE NO IDEA HOW MUCH SHE WILL RECOVER BUT THAT REHAB WOULD BE THE BEST FOR HER. SHE ASKED ABOUT A SPECIFIC FACILTIY FOR STROKE REHAB AND I STATED THAT HER MOTHER AT THIS TIME DOES NOT QUALIFY FOR THE STROKE REHAB SHE IS SOMETIMES 1:1 CARE AND WITH HER CONFUSION AT THIS POINT. I SAID THAT IS NOT TO SAY SHE COULD NEVER GO TO STROKE REHAB, BUT AT THIS POINT SHE IS NOT A CANDIDATE FOR STROKE REHAB. SHE STATED UNDERSTANDING AND THAT SHE DOES NOT HAVE ANY QUESTIONS AT THIS TIME. MY OFFICE PHONE NUMBER WAS GIVEN TO HER SO THAT IF SHE HAS QUESTIONS SHE CAN CALL AND IF I AM NOT IN THE OFFICE I CAN GET BACK TO HER.
--- NOTE | 2018-08-06 11:00 | NUR ---
WHEN I CAME IN TO CHECK ON PATIENT. THE NURSE WAS GIVING HER A SHOWER. ONE OF THE OTHER NURSES WAS CHANGING THE SHEETS ON HER BED. SO AFTER SHE WAS DONE WITH HER SHOWER THE NURSE NEEDED HELP TO TRANSFER FROM THE SHOWER CHAIR TO HER CHAIR. DOCTOR CAME IN AND I CLEANED THE BATHROOM.
--- NOTE | 2018-08-06 11:29 | NUR ---
PT ATTEMPTING TO CLIMB OUT OF BED. THIS RN TO BEDSIDE. PT STATES SHE WANTS "A BATH." PIV COVERED. PIVOT TRANSFER TO SHOWER CHAIR. PT SHOWS INCREASED STRENGTH. PT SHOWERED BY THIS RN. LINENS CHANGED. PT HAS SMALL SOFT BM WHILE IN SHOWER. PT PARTICIPATES IN CARES, ABLE TO WASH SOME AREAS OF BODY, FOLLOWS MOST DIRECTIONS, AND TRIES TO COMB HAIR. MORE SUCCESSFUL WITH LEFT SIDE. PT ATTEMPTS TO STAND ON HER OWN DURING SHOWER MULTIPLE TIMES. PT COXED BACK TO CHAIR, RIGHT SIDED WEAKNESS EVIDENT. PT LISTS TO RIGHT SIDE AT TIMES. NEW GOWN AND DEPENDS IN PLACE, DANITZA CARE AND SHAMPOO DONE. PIVOT TRANSFER TO CHAIR. MD TO BEDSIDE FOR ASSESSMENT. NIH SCALE NOW BACK TO 10, EXPRESSIVE EPHASIA NOTED, WORD SALAD EVEDIENT AT TIMES. PT UNABLE TO IDENTIFY PICTURES AND IS NO LONGER MAKING SENTENCES. SENSORY PERCEPTION DIFFICULT TO ASSESS PT ANSWERS "YES" TO EVERY TOUCH BUT IS NOT ABLE TO IDENTIFY THE SIDE OF BODY TOUCHED. AT BEDSIDE. PT DENIES PAIN AND NAUSEA. PHYSICAL THERAPY DELAYED UNTIL THIS AFTERNOON RELATED TO PTS NEED TO REST. CALL LIGTH WITHIN REACH. AT BEDSIDE. CHAIR ALARM ON.
--- NOTE | 2018-08-06 12:54 | NUR ---
MEDICATIONS DUE, THIS RN TO ROOM. VITALS TAKEN, MEDICATIONS GIVEN. PHYSICAL THERAPY ARRIVED TO WORK WITH PT. PT WORKING WITH PHYSICAL THERAPY. NO ADDITIONAL REQUESTS OR COMPLAINTS AT THIS TIME.
--- NOTE | 2018-08-06 15:05 | NUR ---
THIS RN TO ROOM TO CHECK ON PT. BURLAP WORKER UNABLE TO OBTAIN VITALS, VITALS TAKEN BY THIS RN. PT RESTING WITH EYES CLOSED, RR = 22. PT FAMILY AT BEDSIDE. FAMILY UPDATED ON PLAN OF CARE. FAMILY STATES THE QUESTIONS HAVE BEEN ANSWERED. PT CONTINUES RESTING, BED RAILS UP. BED ALARM ON. DINNER AND BREAKFAST ORDER PLACED.
--- NOTE | 2018-08-06 17:10 | NUR ---
AFTERNOON ASSESSMENT AND MEDICATIONS DUE. THIS RN TO BEDSIDE. PT FINISHED WORKING WITH OCCUPATIONAL THERAPY. OCCUPATIONAL THERPIST STATES PT WAS ABLE TO FOLLOW DIRECTIONS BUT "TIRES EASILY." PT BACK TO BED TO REST. ASSESSMENT DONE. NIH STROKE SCALE REMAINS AT 10 BUT SPEACH, STRENGTH, SENSATION AND FOLLOWING DIRECTIONS NOTABLY IMPROVED. PT ABLE TO READ ALL SENTENCES EXPEPT THE LAST ONE. UNABLE TO IDENTIFY PICTURE OBJECTS, ABLE TO USE SOME WORDS TO DESCRIBE PICTURE. PT USING FULL SENTENCES TO COMMUNICATE WITH FAMILY AND THIS RN. PT STATES "I WANT HIM (POINTING TO ) TO EAT." PT ABLE TO SWALLOW PILLS WHOLE WITHOUT ANY AGITATION OR SWALLOWING DIFFICULTIES. PT ALSO ABLE TO POINT TO SIDE THAT IS TOUCHED. DEPENDS DRY AT THIS TIME. BED RAILS UP. OUTCOME ANALYST TRY ORDERED FOR . PT REQUESTS A MILKSHAKE, ENSURE MILKSHAKE PROVIDED. BED RAILS UP. BED ALARM ON. CALL LIGHT WITHIN REACH. AT BEDSIDE.
--- NOTE | 2018-08-06 18:10 | NUR ---
PT HERE FOR CVA. EXPRESSIVE APHASIA AND RIGHT SIDED WEAKNESS IMPROVING THIS SHIFT. PT TOLERATING REGULAR DIET AND FEEDING SELF THIS SHIFT. 1-2 PA, FWW. PT UP WITH PHYSICAL THERAPY X1 THIS SHIFT. SHOWER TODAY. NIH STROKE SCALE ASSESSEMENTS Q4, 8-10 ON SCORE THIS SHIFT. FALL PRECAUTION PADS IN PLACE. OCCUPATIONAL THERAPY THIS SHIFT. FAMILY AT BEDSIDE. PT FOLLOWS SIMPLE, 1 STEP COMANDS. PT DOES NOT USE CALL LIGHT.
--- NOTE | 2018-08-06 18:46 | NUR ---
PT REPORTING PAIN AT IV SITE. UNABLE TO FLUSH PIV. BANDAGE REMOVED. PIV CATHETER NOTED TO BE BENT. ATTPENTED TO STRAIGHTEN CATHETER, STILL UNABLE TO FLUSH. PIV DC'D PER PROTOCOL. GAUZE AND COBAN APPLIED. NEW PIV STARTED PER PROTOCOL IN RIGHT FOR ARM. BRISK BLOOD RETURN NOTED. PIV SALINE LOCKED, GAUZE AND SLEEVE OVER IV SITE. PT TALKING WITH SON, OCCATIONAL FULL SENTENCES. BED RAILS UP. BED ALARM ON. CALL LIGHT WITHIN REACH. SON AT BEDSIDE.
--- NOTE | 2018-08-06 19:20 | NUR ---
SHIFT REPORT RECEIVED FROM [facility] TROY CASTRO. PT AWAKE RESTING IN BED, SON IN ROOM. PT UP 2PA TO VOID WITH GAITBELT AND FWW. PT TOLERATED AMBULATION WELL WITH USE OF SHORT DIRECTIONAL CUES. PT RESTING BACK IN BED, BED ALARM ON FOR SAFETY. CALL LIGHT IN REACH.
--- NOTE | 2018-08-06 21:14 | NUR ---
ASSESSMENT COMPLETE. SCHEDULED MEDS GIVEN (SEE EMAR). PT'S 2100 SCHEDULED LOVENOX RETIMED PER SUGGESTION OF TELEPHARMACY PT'S LAST DOSE WAS NEAR 1300. MED WAS RETIMED FOR 0100 AND 1300. CHICLE GRINDER FEEDER ROXANN AWARE OF CONVERSATION WITH TELEPHARMACY. NIH STROKE SCALE COMPLETE, SEE INTERVENTION DOCUMENTATION. PT DROWSY, MILDY IRRITATED WITH ASSESSMENT BUT COMPLIANT. PT UNABLE TO STATE NAME OR . IV SITE FLUSHED, SITE WNL. CALL LIGHT IN REACH. BED ALARM, SIDE RAILS, AND RAILING PADDING IN PLACE FOR SAFETY.
--- NOTE | 2018-08-06 22:00 | NUR ---
PT RESTING IN BED, RR WNL. PT APPEARS COMFORTABLE. NO DISTRESS NOTED. RAILS UP WITH PADDING, FALL MATS IN PLACE. PT SALINE LOCKED. CALL LIGHT IN KRYSTINA, BED ALARM ON FOR SAFETY.
--- NOTE | 2018-08-07 04:30 | NUR ---
BED ALARM GOING OFF, THIS RN IN ROOM. PT VERBALIZING NEED TO VOID. PT 2PA WITH FWW AND GAIT BELT. 250 MLS YELLOW OUPUT. PT BACK IN BED, ASSESSMENT COMPLETE. NIH STROKE SCALE COMPLETE, SEE SCORE UNDER INTERVENTION. PT DENIES PAIN, A/O TO FIRST NAME AND LOCATION. DENIES FURTHER NEEDS, CALL LIGHT IN REACH. BED ALARM ON FOR SAFETY WITH SIDE RAILS UP W/ PADDING.
--- NOTE | 2018-08-07 05:10 | NUR ---
WITH THE HELP OF TROY MENARD WE HELPED PT TO THE BATHROOM AND BACK TO BED WITH CHRIS STATON. BED ALARM SET. BEDSIDE TABLE AND CALL LIGHT IN REACH. GARBAGES EMPTIED AND ROOM CLEANED UP. PT NEEDS NOTHING MORE AT THIS TIME.
--- NOTE | 2018-08-07 08:55 | NUR ---
PT NOT HERE YET, WAS ABLE TO MEET PTS SON CECILIO. HE HAD NO QUESTIONS AT THIS TIME, EXPLAINED THE PLAN OF CARE TO HIM BRIEFLY. HE SHOOK HIS HEAD WAS HIS RESPONSE.
--- NOTE | 2018-08-07 08:56 | NUR ---
PT SITTING UP IN CHAIR VISITING WITH SON. PT TOLERATED A WELL BALANCED BREAFAST. PT DENIES CHEST PAIN AND SOB AT THIS TIME. NOTABLE RIGHT SIDED WEAKNESS WITH RIGHT FACIAL DROOP. CHAIR ALARM INTACT. CALL LIGHT WITHIN REACH. PT RECENTLY VOIDED. NO NEEDS AT THIS TIME.
--- NOTE | 2018-08-07 09:08 | NUR ---
TALKED TO THE PT OVER THE PHONE AND HE STATED THAT SHE WOULD BE GOING TO [facility] BECAUSE IT IS LOCAL. HE SAID TO SEND THE PAPERS OVER FOR APPROVAL. I CALLED AND TALKED WITH TAI AT [facility] AND FAXED CHART NOTES TO INCLUDE FACE SHEET, ER NOTES AND SUMMARY, H AND P, PROG NOTES, IMAGING, MEDS, LABS. PT, OT AND ST EVALS AND NOTES. RECIEVED FAX CONFIRMATION. TAI STATED HE WOULD HAVE NOLA LOOK AT THEM AND THEN CALL ME BACK.
[2018-08-07] MEDS ORDERED: COUMADIN1 MG PO ×2 (10:34→10:35)
[2018-08-07] MEDS ORDERED: PRAVASTATIN SOD80 MG PO (10:36)
[2018-08-07] MEDS ORDERED: HYDRALAZINE HCL25 MG PO (10:36)
[2018-08-07] MEDS ORDERED: NORVASC5 MG PO (10:36)
[2018-08-07] MEDS ORDERED: TRAZODONE HCL50 MG PO (10:37)
--- NOTE | 2018-08-07 10:46 | NUR ---
CALLED [facility] I HAD NOT HEARD FROM THEM AND TALKED WITH NOLA HANDLEY AND SHE STATED SHE WOULD LOOK AT THE NOTES AND LET ME KNOW IF THEY WOULD TAKE THE PT. DIRECT LINE TO CASE MANAGEMENT GIVEN TO NOLA.
--- NOTE | 2018-08-07 12:09 | NUR ---
CALLED [facility] WHILE WAITING FOR THEM TO CALL ME BACK. NOLA SAID SHE HAD NO INTERNET SO SHE COULDN'T GET THE CHART NOTES. BUT STATES SHE JUST NOW PRINTED THEM OFF. SHE THEN SAID SHE DIDN'T SEE ANY PROBLEMS WITH HER COMING THERE BUT TAI WAS OUT TO [facility] AND HE HAD TO CHECK OVER THE CHART SO SHE TOLD ME TO WAIT 30 MINUTES OR SO.
--- NOTE | 2018-08-07 12:39 | NUR ---
AT BS WITH PT. SHE SMILED AND WAVED ME IN AND SAID HELLO. GREAT IMPROVEMENT FROM [facility] IN THE WEEK. EXPRESSED STEWART AT PT'S IMPROVEMENT. SHE TOLD ME THAT HER DAUGHTER FROM [place] IS COMING IN NEXT WEEK TO VISIT, SHE SEEMED EXCITED. PT STUMBLED WITH SOME WORDS, AND WOULD TRY TO MOTION WITH HER R ARM AND WOULD NOT BE ABLE TO LIFT MUCH. GAVE PT A PRAYER SHAWL AND G.POST MAG. EXTENDED A BLESSING, WILL FOLLOW NEEDED
--- NOTE | 2018-08-07 12:51 | NUR ---
[facility] CALL AND SAID THEY WOULD ACCEPT PT AND I COULD SEND THE ORDERS, I FAXED ORDERS AND THE PAS[facility]. RECIEVED FAX CONFIRMATION. TAI HAD SAID THAT NOLA WOULD LOOK AT THEM AND CALL ME BACK.
--- NOTE | 2018-08-07 13:06 | NUR ---
I CALLED [facility] ASKED FOR NOLA, WAS TOLD SHE WAS IN A MEETING AND COULDN'T BE DIS TURBED. I EXPLAINED THAT TAI TOLD ME TO CALL AND LET NOLA KNOW THE ORDERS WERE THERE AND TO HAVE MARTHA COME PICK PT UP AFTER ORDERS WERE APPROVED. SHE STATED SHE WOULD HAVE THEM (RN) LOOK AT THEM AND SHE WOULD CALL ME BACK.
--- NOTE | 2018-08-07 14:01 | NUR ---
PATIENT CALLS TO USE BATHROOM. PATIENT SITTING UP IN BED. IN ROOM. PATIENT GOES TO USE BATHROOM. PATIENT USES WALKER AND GATE BELT. TWO PERSON ASSISTING. PATIENT BACKS TO BED. BED ALARM ON. VITAL SIGNS AND I&O DONE. CALL LIGHT WITHIN REACH. NO OTHER NEEDS AT THIS TIME
--- NOTE | 2018-08-07 15:10 | NUR ---
MARTHA FROM [facility] HERE TO SWITCH FOREMAN PT.
--- NOTE | 2018-08-07 20:20 | NUR ---
PT'S SON ARRIVED ON THE MEDICAL SURGICAL FLOOR STATING THAT PT WAS [facility] TODAY [facility]. HE SAID SHE WAS NOT THERE LONG AND WANTED TO GO HOME. THEY TOOK HER HOME. HOWEVER, NOW THEY DO NOT HAVE MEDICATIONS OR DC INFO. PRINTED DC PACKET AND NOTIFIED RN BOND TRADER. WE ADVISED SON TO CONTACT [facility] TO GET HER MEDICATIONS OR THEY MAY HAVE TO PICK THEM UP FROM HER PHARMACY. ADVISED HIM THAT DC PLANNERS USUALLY HANDLE THIS BUT TRIED TO POINT HIM IN THE RIGHT DIRECTION.
[2018-08-08] MEDS ORDERED: PRAVASTATIN SOD80 MG PO (10:11)
[2018-08-08] MEDS ORDERED: TRAZODONE HCL50 MG PO (10:11)
[2018-08-08] MEDS ORDERED: METOPROLOL TART50 MG PO (10:11)
[2018-08-08] MEDS ORDERED: HYDRALAZINE HCL25 MG PO (10:11)
[2018-08-08] MEDS ORDERED: LOSARTAN POTAS100 MG PO (10:11)
[2018-08-08] MEDS ORDERED: NORVASC5 MG PO (10:11)
== END 2018-08-07 15:10 | DRG 65 ==
LOC: ED 11:39 → MS 18:25
PROVIDERS: ADMIT Student in an Organized Health Care Education/Training Program
DX: I63.9 Cerebral infarction, unspecified (principal); G81.91 Hemiplegia, unspecified affecting right dominant side; N39.0 Urinary tract infection, site not specified; R47.01 Aphasia; I10 Essential (primary) hypertension; E78.5 Hyperlipidemia, unspecified; R79.1 Abnormal coagulation profile; R82.71 Bacteriuria; B96.20 Unspecified Escherichia coli [E. coli] as the cause of diseases classified elsewhere; Z88.8 Allergy status to other drugs, medicaments and biological substances; Z79.01 Long term (current) use of anticoagulants; Z79.82 Long term (current) use of aspirin; Z79.899 Other long term (current) drug therapy; Z95.2 Presence of prosthetic heart valve
CPT/HCPCS: 36415; 70450; 70496; 70498; 71045; 80048; 80053; 80061; 81001; 83036; 83735; 84484; 85025; 85610; 87077; 87088; 87186; 92523; 93005; 93010; 96361; 96374; 96375; 97116; 97162; 97165; 97530; 97535; 99285-25; J0696; J1200; J1630; J1650; J2930; J7040; J7120; Q9967

== ENCOUNTER 2020-02-18 12:00 | Emergency (ER) | payer OTHER, MEDICARE | END 2020-02-18 15:27 | disposition home or self-care (01) | LOC: ED 12:00 | DX: Z04.3 Encounter for examination and observation following other accident (principal); Z86.73 Personal history of transient ischemic attack (TIA), and cerebral infarction without residual deficits; I10 Essential (primary) hypertension; E78.5 Hyperlipidemia, unspecified; Z79.899 Other long term (current) drug therapy; Z79.82 Long term (current) use of aspirin; Z79.01 Long term (current) use of anticoagulants ==